=== PATIENT | male | born 1950 | race Caucasian/White ===

== ENCOUNTER 2017-08-02 11:20 | Emergency (ER) | payer MEDICARE ==
[~2017-08-02] VITALS: Ht 175.3 cm; Wt 99.8 kg
[~2017-08-02 11:20] MED LIST: ALLOPURINOL300 MG PO; ASPIR 8181 MG PO; BUPROPION HCL150 MG PO; DEPAKOTE ER500 MG PO; DEXTROAMP-AMPHE30 MG PO; ESCITALOPRAM OX10 MG PO; GLIMEPIRIDE1 MG PO; LISINOPRIL2.5 MG PO; MELOXICAM7.5 MG PO; METHOCARBAMOL750 MG PO; METOPROLOL SUCC25 MG PO; MIRAPEX0.25 MG PO; PRAVASTATIN SOD10 MG PO; TAMSULOSIN HCL0.4 MG PO; TYLENOL WITH C1 EACH PO
[2017-08-02 12:23] LABS: ANION GAP 13.5 mmol/L (8-16); CALCIUM 9.4 mg/dL (8.4-10.2); CREATININE, SERUM 1.21 mg/dL (0.72-1.25); POTASSIUM 4.5 mmol/L (3.5-5.1)
[2017-08-02 12:26] LABS: BASOPHILS % 0.3 % (0.0-1.0); EOSINOPHILS # (AUTO) 0.5 (0.0-0.4); EOSINOPHILS % 4.2 % (0.0-6.0); HEMATOCRIT 41.6 % (38.2-49.6); LYMPHOCYTES # (AUTO) 1.4 (1.0-3.2); LYMPHOCYTES % 12.8 % (18.0-39.1); MEAN CORPUSCULAR HEMOGLOBIN 30.4 pg (28-32); MEAN CORPUSCULAR HGB CONC 33.7 g/dL (31-35); MEAN CORPUSCULAR VOLUME 90.4 fL (81-99); MONOCYTES % 9.7 % (4.4-11.3); NEUTROPHILS # (AUTO) 7.7 (2.1-6.9); NEUTROPHILS % 72.4 % (38.7-80.0); PLATELET COUNT 171 x10e3/uL (140-360); RED CELL DISTRIBUTION WIDTH 12.7 % (11.7-14.4)
--- NOTE | 2017-08-02 15:00 | Diagnostic Imaging Report ---
History: Salivary gland mass. Comparison studies: None Technique: Axial, coronal and sagittal images from the skull base to the thoracic inlet. Coronal and sagittal images reconstructed from the axial data. Intravenous contrast: 100 cc of Omnipaque 300. Findings: Soft tissues: No abnormalities. Masses: None. Lymph nodes: No radiographically significant adenopathy. Vessels: Arteries and veins are patent. Common origin of the brachiocephalic and left common carotid artery. Calcified and noncalcified plaque at the bilateral carotid bulbs results in less than 30% right and 10% left stenosis. Nonstenotic calcifications at the carotid siphons. Glands (thyroid, parotid and left submandibular): Normal in size and symmetric. No masses. Diffuse enlargement and enhancement of the right submandibular gland without discrete mass. At the distal right submandibular gland duct there are 2 calcific densities measuring 6 mm and causing dilation of the proximal duct, punctate smaller calcifications are seen at the most proximal duct. Orbits: No abnormalities. Paranasal sinuses: Clear. Temporal bones: No abnormalities. Skull base and facial bones: Intact. Cervical spine: Right uncinate process hypertrophy and facet hypertrophy from C3 through C6 results in moderate to severe foraminal narrowing. Posterior disc osteophyte complex at C5-6 results in moderate canal stenosis. Mild emphysematous changes at both lung apices. IMPRESSION: 1. Right submandibular sialoadenitis with multiple subcentimeter sialoliths the largest located at the distal duct Signed by: DR Jere Almaraz M.D. on 08/02/2017 2:57 PM
[2017-08-02] MEDS ORDERED: IOPAMIDOL 370 MG/ML 200 ML INFUS..BTL INJ ONE (15:14)
[2017-08-02 16:23] VITALS: BP 122/59
== END 2017-08-02 16:27 | disposition home or self-care (01) ==
LOC: ER 11:20
DX: K11.5 Sialolithiasis (principal); E11.9 Type 2 diabetes mellitus without complications; E78.5 Hyperlipidemia, unspecified
CPT/HCPCS: 36415; 70491; 80048; 85025; 99284; Q9967

== ENCOUNTER 2024-09-13 14:10 | Emergency (ER) | payer MEDICARE ==
[~2024-09-13] VITALS: Ht 172.7 cm; Wt 85.1 kg
[2024-09-13 14:15] VITALS: PULSE 92; RESP 16; TEMP 98.5
[2024-09-13] MEDS ORDERED: KETOROLAC TROMETHAMINE 30 MG/ML VIAL ONE (14:48)
[2024-09-13] MEDS ORDERED: SODIUM CHLORIDE 0.9% 1000ML 1,000 ML ONE (14:48)
[2024-09-13] MEDS: SODIUM CHLORIDE 0.9% 1000ML 1,000 ML IV ONE (14:51)
[2024-09-13] MEDS: KETOROLAC TROMETHAMINE 30 MG/ML VIAL IV STA (15:03)
[2024-09-13] MEDS ORDERED: ZITHROMAX250 MG PO (16:08)
[2024-09-13] MEDS ORDERED: AZITHROMYCIN 250 MG TAB ONE (16:09)
[2024-09-13] MEDS ORDERED: AZITHROMYCIN 250 MG TAB PO ONE (16:15)
[2024-09-13 16:26] VITALS: BP 141/70; PULSE 75; RESP 16; TEMP 98; O2SAT 96
== END 2024-09-13 16:25 | disposition home or self-care (01) ==
LOC: FSED 14:15
DX: R42 Dizziness and giddiness (principal); E86.0 Dehydration; E86.1 Hypovolemia; J40 Bronchitis, not specified as acute or chronic; E11.65 Type 2 diabetes mellitus with hyperglycemia; E78.00 Pure hypercholesterolemia, unspecified; M10.9 Gout, unspecified; M54.9 Dorsalgia, unspecified; G89.29 Other chronic pain; Z11.52 Encounter for screening for COVID-19
CPT/HCPCS: 0223U; 71046; 80048; 80076; 81003; 83518; 84484; 85025; 86308; 87400; 87420; 99283; J1885; J7030